=== PATIENT | female | born 1995 | race African-American/Black ===

== ENCOUNTER 2017-02-28 13:14 | Emergency (ER) | payer OTHER ==
[~2017-02-28] VITALS: Ht 167.6 cm; Wt 65.6 kg
[2017-02-28 13:15] VITALS: BP 116/78
[2017-02-28] MEDS ORDERED: OXYcodone/APAP 5/325MG TABLET PO ONE (13:30)
[2017-02-28] MEDS ORDERED: OXYcodone/APAP 5/325MG TABLET ONE (13:37)
[2017-02-28] MEDS ORDERED: IBUPROFEN 200 MG TABLET ONE (13:40)
[2017-02-28] MEDS ORDERED: IBUPROFEN 200 MG TABLET PO ONE (14:00)
== END 2017-02-28 13:50 | disposition home or self-care (01) ==
LOC: ED 13:32
DX: K08.89 Other specified disorders of teeth and supporting structures (principal)
CPT/HCPCS: 99283